=== PATIENT | male | born 1995 | race Caucasian/White ===

== ENCOUNTER 2017-01-06 17:37 | Emergency (ER) | payer OTHER ==
[2017-01-06] MEDS ORDERED: IOPAMIDOL 300 (61%) 150 ML VIAL IV ONE (17:38)
[2017-01-06] MEDS ORDERED: LACTATED RINGERS 1,000 ML ONE (18:09)
[2017-01-06] MEDS ORDERED: PROCHLORPERAZINE 5 MG/ML 2 ML VIAL ONE (18:09)
[2017-01-06] MEDS ORDERED: MAALOX/LIDO2%VISC/SIMETHICONE 40 ML BOT ONE (18:29)
[2017-01-06] MEDS ORDERED: FAMOTIDINE 20 MG TABLET ONE (18:29)
[2017-01-06] MEDS ORDERED: SUCRALFATE 1 G/10 ML DOSE ONE (18:29)
[2017-01-06 18:49] LABS: ABSOLUTE NEUTROPHIL COUNT 4.1 K/mm3 (1.8-7.7); BASO % 0.5 % (0.2-1.0); EOS # 0.1 (0.0-0.5); EOS % 1.6 % (0.9-2.9); HEMATOCRIT 44.4 % (32.0-52.0); HEMOGLOBIN 15.3 gm/l (14.0-18.0); IMM NEUT% 0.5 % (0-1); LYMPH # 2.9 (1.0-4.8); LYMPH % 37.7 % (15-45); MEAN CELL VOLUME 88.1 fl (80.0-94.0); MEAN CORPUSCULAR HEMOGLOBIN 30.4 pg (27.0-31.0); MEAN CORPUSCULAR HGB CONC 34.5 g/dl (33.0-37.0); MEAN PLATELET VOLUME 9.1 fl (7.4-10.4); MONO # 0.5 (0.0-0.8); MONO % 5.9 % (4-12); NEUT % 53.8 % (43-75); PLATELET COUNT 313 K/mm3 (130-400); RED CELL DISTRIBUTION WIDTH 11.4 % (11.5-14.5)
[2017-01-06 18:51] LABS: ALB/GLOB RATIO 1.8 (>1.0); ALBUMIN 4.8 gm/dL (3.5-5.7); CALCIUM 9.4 mg/dL (8.6-10.3)
--- NOTE | 2017-01-06 19:14 | CT ---
ABD/PELVIS W/ CON COMPARISON: None. HISTORY: Lower abdominal pain, dark stools, and vomiting for one week. Technique: No oral contrast. Intravenous injection 125 mL Isovue 300. Using a [employer] Aquilion [address] scanner, images were obtained from the diaphragm to the floor the pelvis. An automated dose reduction technique was used to minimize patient radiation dose. Dose information: CTDIvol (mGy): 5.30 DLP(mGycm): 256.00 FINDINGS: Lung bases: Normal. Inferior mediastinum and heart: Normal. Liver: Normal. Gallbladder:Normal. Bile ducts: Normal. Pancreas: Normal. Spleen: Normal. Adrenal glands: Normal. Kidneys: Normal. Ureters: Normal Urinary bladder: Normal. Prostate gland and seminal vesicles: Normal. Blood vessels: Normal Lymph nodes: Normal Stomach: Normal Duodenum: Normal Small intestine: Scattered air-fluid levels without distention. Appendix: Normal Colon: Normal Abdominal wall and supporting musculature: Normal Bones: Normal IMPRESSION: Normal appendix. No bowel obstruction. Fluid in the stomach and the small intestine, evidence of gastroenteritis. The results were transmitted to the emergency department medical record system 01/06/2017 at 19:16
[2017-01-06 19:19] LABS: INR 1.09; PROTHROMBIN TIME 11.6 SECONDS (9.3-11.4)
== END 2017-01-06 20:12 | disposition home or self-care (01) ==
LOC: ED 17:37
DX: K52.9 Noninfective gastroenteritis and colitis, unspecified (principal); I10 Essential (primary) hypertension
CPT/HCPCS: 83690; 85025; 80053; 85610; 74177; 99284 ×2; 96374; 96361 ×2; A9270 ×3; J0780; J7120; Q9967